=== PATIENT | male | born 1955 | race Caucasian/White ===

== ENCOUNTER → 2017-01-08 | Outpatient (CLI) | payer MEDICARE ==
[~2017-01-08] MED LIST: FLEXERIL10 MG PO; IBU-8800 MG PO; LORTAB 5/500 501 TAB PO
== END ==
LOC: RT 14:00
DX: R06.02 Shortness of breath (principal); J44.9 Chronic obstructive pulmonary disease, unspecified

== ENCOUNTER → 2017-01-26 | Outpatient (CLI) | payer MEDICARE ==
--- NOTE | 2017-01-26 17:13 | RADIOLOGY REPORT PS360 ---
PROCEDURE: 2-D M-mode and color Doppler study INDICATIONS FOR THE TEST: Chest pain COPD+ Heart Murmur+ Tobacco Smoking Palpitations Fatigue+ Syncope Edema Hypertension Diabetes Mellitus Rheumatic Fever SOB DILLON+Obesity Hyperlipidemia Family History HD Additional History Quit smoking 7-10 years ago PATIENT INFORMATION HEIGHT: 68 WEIGHT: 180 GENDER: Male B/P: 174/96 2-D/M-MODE INTERPRETATION: 2-D MEASUREMENTS OBSERVED VALUES IN CMS Right Ventricular Dimension (RVDd) 2.6 Interventricular Septum (Thickness)(IVsd) 0.9 Left Ventricular Internal Dimensions(LVIDd) 5.3 Left Ventricular Posterior Wall (Thickness)(LVPWd) 0.8 Aortic Root 2.2 Aortic Cusp Separation 2.2 Left Atrial Dimensions (LAD) 2.7 2D 1. Left atrium is normal size, left ventricle is normal size, there is no concentric left ventricular hypertrophy, visually estimated ejection fraction 55% with no obvious regional wall motion abnormality. 2. The right atrium and right ventricle are normal size and contractility. 3. 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 4. The aortic valve is minimally thickened and fibrosed. 5. The mitral and tricuspid valve is structurally normal. 6. The pulmonic valve is not well visualized. 7. No significant pericardial effusion noted. DOPPLER INTERROGATION: Doppler interrogation of the aortic mitral and tricuspid presence of trace mitral and tricuspid regurgitation, diastolic parameters are within normal range, there is no flow across the intra-atrial septum. CONCLUSION: 1. Normal left ventricular size, preserved left ventricular systolic function, visually estimated ejection fraction 55% with no obvious regional wall motion abnormality. Diastolic parameters are within normal range. 2. 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 3. Trace mitral and tricuspid regurgitation. 4. No significant pericardial effusion noted.
== END ==
LOC: RT 07:48
DX: J44.9 Chronic obstructive pulmonary disease, unspecified (principal); R06.09 Other forms of dyspnea

== ENCOUNTER → 2017-08-04 | Outpatient (CLI) | payer MEDICARE ==
[2017-08-04 10:07] LABS: BILIRUBIN, INDIRECT 0.29 mg/dL (0-0.9)
== END ==
LOC: LAB 08:39
PROVIDERS: Internal Medicine
DX: I25.10 Atherosclerotic heart disease of native coronary artery without angina pectoris (principal); I11.9 Hypertensive heart disease without heart failure; R06.09 Other forms of dyspnea; G47.33 Obstructive sleep apnea (adult) (pediatric)